=== PATIENT | male | born 1985 | race Caucasian/White ===

== ENCOUNTER 2020-07-01 17:30 | Outpatient (CLI) | payer OTHER, SELFPAY | END 2020-07-01 17:31 | disposition home or self-care (01) | LOC: ANHCOVIDVC 17:30 | PROVIDERS: PCP Family Medicine | DX: Z23 Encounter for immunization (principal) | CPT/HCPCS: 0001A; 91300 ==

== ENCOUNTER 2020-07-22 17:30 | Outpatient (CLI) | payer OTHER, SELFPAY | END 2020-07-22 17:31 | LOC: ANHCOVIDVC 17:30 | PROVIDERS: PCP Family Medicine | DX: Z23 Encounter for immunization (principal) | CPT/HCPCS: 0002A; 91300 ==

== ENCOUNTER 2020-11-02 02:14 | Day surgery (SDC) | payer OTHER, SELFPAY ==
[2020-10-22 11:55] VITALS: BMI 25.0
--- NOTE | 2020-10-30 17:28 | WPDANESEPP ---
Anes - Eval Pre Procedure Procedure: Operation Date: 11/02/20 10:00 Proposed Procedures p Colonoscopy - Bert Smith MD Date/Time: 10/30/20 17:28 Pre Op Diagnosis: rectal bleeding Patient Data Age: 35 Gender: M Height: 1.78 m Weight: 79 kg Allergies Allergy/AdvReac Type Severity Reaction Status Date / Time No Known Allergies Allergy Unverified 10/22/20 12:00 Home Medications Medication Instructions Recorded Confirmed Type No Home Medications 04/02/20 10/22/20 History Patient hx anesthesia problems: none Family hx anesthesia problems: none PMF Past Medical History Medical History Hemorrhoids Family History Family History Sibling Family history of thyroid disease Mother Depression Other Diabetes mellitus Family history of allergic disorder Social History Social History Social History: Smoking status: Never smoker Second hand tobacco smoke exposure: No Alcohol intake: current Drinks per week: 2 Alcohol use details: BEER Substance use: never Substance use type: does not use Living arrangements: with family Gender identity (if verbalized by the patient): Male Spiritual care concerns: No Exam Day of Procedure 10/30/20 17:28
--- NOTE | 2020-11-02 07:00 | PM.HPGS ---
History of Present Illness History of Present Illness Consent: Risks, benefits, and alternatives have been discussed and questions answered. Patient agrees to proceed with procedure. Chief complaint: rectal bleeding Narrative: Carlo Nick is a 35 year old male with rectal bleeding. He has intermittently seen blood in his stools for few years, usually when straining. Review of Systems Review of Systems: All systems reviewed & are unremarkable except as noted in HPI and below PMFSH Past Medical History Medical History Hemorrhoids Family History Family History Sibling Family history of thyroid disease Mother Depression Other Diabetes mellitus Family history of allergic disorder Social History Social History Social History: Smoking status: Never smoker Second hand tobacco smoke exposure: No Alcohol intake: current Drinks per week: 2 Alcohol use details: BEER Substance use: never Substance use type: does not use Living arrangements: with family Gender identity (if verbalized by the patient): Male Spiritual care concerns: No Meds Home Medications and Allergies Home Medications Medication Instructions Recorded Confirmed Type No Home Medications 04/02/20 11/02/20 History Allergies Allergy/AdvReac Type Severity Reaction Status Date / Time No Known Allergies Allergy Verified 11/02/20 08:55 Exam Resp: Auscultation: clear to auscultation bilaterally Cardio: Rate: regular rate Rhythm: regular rhythm GI: GI Palp: Yes Soft to palpation and No Tenderness to palpation present (GI) Assessment and Plan Assessment and plan (1) Rectal bleed: Code(s): K62.5 - Hemorrhage of anus and rectum Status: Acute Assessment and Plan: Colonoscopy with possible biopsy or polypectomy or cautery or injection of substances.
[2020-11-02 08:57] VITALS: BP 126/83; PULSE 104; RESP 16; TEMP 35.8; O2SAT 100; BMI 24.0
[2020-11-02] MEDS: LACTATED RINGERS 1,000 ML 150 ML IV CONT (09:09)
--- NOTE | 2020-11-02 09:11 | P.PNAN_ITS ---
Anes - Eval Final PreProcedure Day of Procedure 11/02/20 09:11 Patient weight: normal Heart: regular rate and rhythm Lungs: clear to auscultation Airway: Mallampati scale class 1 Neurological: alert and oriented Last oral intake: >/= 8 hours ASA classification: I Emergent: no Anesthetic plan: proceed Anesthesia type and monitoring: general GIVS and standard monitoring Informed Consent: The patient's anesthetic plan and its attendant risks and ruby efits were discussed with the patient/family/POA. Questions were solicited and answers provided to the satisfaction of the patient/family/POA.
[2020-11-02 09:53] VITALS: BP 104/69; PULSE 80; RESP 21; O2SAT 96
[2020-11-02 10:03] VITALS: BP 107/71; PULSE 81; RESP 21; O2SAT 96
[2020-11-02 10:13] VITALS: BP 127/72; PULSE 96; RESP 21; O2SAT 97
== END 2020-11-02 10:22 | disposition home or self-care (01) ==
PROVIDERS: PCP Family Medicine; Visit Provider Internal Medicine Gastroenterology
PROC: 0DJD8ZZ Inspection of Lower Intestinal Tract, Via Natural or Artificial Opening Endoscopic (ICD-10-PCS; CPT 45378; principal; 2020-11-02 10:00)
DX: K92.1 Melena (principal); K64.9 Unspecified hemorrhoids
CPT/HCPCS: 45378; J2704; J7120

== ENCOUNTER 2022-02-21 13:28 | Outpatient (CLI) | payer OTHER, SELFPAY ==
--- NOTE | ~2022-02-21 | XR_ITS ---
[id number] INDICATION: Cervicalgia TECHNIQUE: 3 views of the cervical spine. FINDINGS: No prior studies for comparison. The cervical spine is visualized to the cervicothoracic junction. There is no prevertebral soft tiss ue swelling, listhesis, or loss of vertebral body height. Intervertebral disc spaces are normal. Th e osseous central canal is patent. No displaced cervical spine fractures are identified. IMPRESSION: 1. No acute osseous abnormality of the cervical spine. Reviewed, dictated and finalized at location A. GHT TEAM ASSOCIATE
== END 2022-02-21 13:29 | disposition home or self-care (01) ==
PROVIDERS: PCP Family Medicine; Visit Provider Family Medicine
DX: M54.2 Cervicalgia (principal)
CPT/HCPCS: 72040

== ENCOUNTER 2023-03-30 14:16 | Outpatient (CLI) | payer OTHER, SELFPAY ==
--- NOTE | ~2023-03-30 | XR_ITS ---
XR chest 2V DATE: 03/30/2023 14:30 INDICATION: Chronic left subpectoral chest pain TECHNIQUE: PA and lateral views COMPARISON: None FINDINGS: Normal heart size. No hilar or mediastinal enlargement. No pulmonary infiltrate or consolid ation, pleural effusion or pulmonary vascular congestion or pneumothorax is detected. IMPRESSION: Negative Reviewed, dictated and finalized at location L. AL CARE TECHNICIAN IMPRESSION: Negative
== END 2023-03-30 14:17 | disposition home or self-care (01) ==
PROVIDERS: PCP Family Medicine; Visit Provider Family Medicine
DX: R07.89 Other chest pain (principal)
CPT/HCPCS: 71046